=== PATIENT | female | born 2000 | race Caucasian/White ===

== ENCOUNTER 2024-12-23 13:22 | Emergency (ER) | payer BC ==
[2024-12-23 14:29] LABS: Glucose, Urine (Dipstick) Negative (Negative); Leukocyte Negative (Negative); Protein, Urine (Dipstick) 100 mg/dL (Neg-Trace); Specific Gravity, Urine 1.020 (1.005-1.030)
[2024-12-23 14:44] LABS: CAUTI Indications for Culture Alt mental st,lethar; Mucous/LPF 3+ LPF (<2+); RBC/HPF 0-3 HPF (0-3); WBC/HPF 0-3 HPF (0-3)
[2024-12-23 14:45] LABS: Pregnancy Test - Urine (BHCG) Negative (Negative); Pregu Control Background? CLEAR/WHITE (CLR/WHITE); Pregu Control Bar Appear? YES (CONTROL BAR); Urine Culture Reflex No No
== END 2024-12-23 15:09 | disposition home or self-care (01) ==
LOC: NAV ERS 13:22
DX: R10.9 Unspecified abdominal pain (principal); R51.9 Headache, unspecified; H53.8 Other visual disturbances; R29.700 NIHSS score 0
CPT/HCPCS: 51701; 81001; 81025